=== PATIENT | female | born 1970 | race Caucasian/White ===

== ENCOUNTER → 2024-08-03 | Outpatient (CLI) | payer MEDICAID, SELFPAY ==
--- NOTE | 2024-08-03 12:30 | RAD_ITS ---
EXAM: XR BONE SURVEY, COMPLETE CLINICAL INDICATION: MGUS, R/O LYTIC LESION TECHNIQUE: Multiple views of the bones of the axial and appendicular skeleton. 20 images of the axial and appendicular skeleton. COMPARISON: Chest radiograph, 10/18/2014 FINDINGS: BONES/JOINTS: Status post C4-C5 and C5-C6 ACDF. Straightening of expected cervical lordosis. Multilevel facet, uncovertebral joint, and endplate osteophytosis in the cervical spine. Degenerative changes in the thoracic and lumbar spine. Degenerative anterolisthesis of L4 upon L5 secondary to facet arthrosis. No lytic or blastic osseous lesions are identified throughout the axial and appendicular skeletal structures visualized. SOFT TISSUES: Status post bilateral tubal ligation. No acute cardiac or pulmonary pathology is evident. Normal bowel gas pattern. OTHER FINDINGS: The patient is edentulous. RAD/Bone Survey Comp(Axial&Append) IMPRESSION: No lytic or blastic osseous lesions are identified throughout the axial and appendicular skeletal structures visualized. Degenerative changes and postoperative changes in the spine. Electronically Signed: Ronni Busch DO at 22:54 EDT ,
== END | disposition home or self-care (01) ==
LOC: RAD 12:00
PROVIDERS: PCP Internal Medicine; Referring Provider Internal Medicine Hematology & Oncology; Visit Provider Internal Medicine Hematology & Oncology
DX: D47.2 Monoclonal gammopathy (principal)
CPT/HCPCS: 77075

== ENCOUNTER → 2025-01-19 | Outpatient (CLI) | payer MEDICAID, SELFPAY ==
[2025-01-19 10:31] LABS: Absolute Lymphocyte Count 2.45 X10^3/uL (0.83-4.51); Basophil# 0.07 X10^3/uL; Basophil% 0.9 % (0-1); Eosinophil# 0.35 X10^3/uL; Eosinophils% 4.7 % (0-5); Hematocrit 40.8 % (37-47); Hemoglobin 13.6 g/dL (12.0-15.0); Lymphocyte # 2.45 X10^3/ul (0.83-4.51); Mean Corp Hgb Conc 33.3 g/dL (32-36); Mean Corpuscular Volume 81.1 fL (81-99); Mean Platelet Vol. 11.2 fl (6.2-12.0); Monocyte# 0.57 X10^3/uL; Monocyte% 7.7 % (0-10); NRBC Flagged by Analyzer 0 % (0-5); Neutrophil # 3.97 X10^3/uL (2.7-7.7); Neutrophil % 53.6 % (47-70); Platelet Count 272 K/mm3 (150-450); RBC Distribution Width CV 12.7 % (11.6-14.6); RBC Distribution Width SD 36.9 fl (35.1-43.9); Red Blood Count 5.03 M/mm3 (4.2-5.4); White Blood Count 7.4 K/mm3 (4.4-11.0)
[2025-01-19 11:41] LABS: ALB/GLOB Ratio 1.2 RATIO (0.9-2.4); AST(SGOT) 22 U/L (<=31); Alanine Aminotransfer ALT/SGPT 24 U/L (<=34); Albumin, Serum 3.9 g/dL (3.5-5.0); Alkaline Phosphatase 158 U/L (35-104); Anion Gap 13 (5-15); BUN 16 mg/dL (4-19); BUN/Creat Ratio 25.4 RATIO (10-20); Calcium,Total 9.5 mg/dL (7.6-11.0); Carbon Dioxide 20.4 mmol/L (21.0-32.0); Chloride 99 mmol/L (98-108); Creatinine, Serum 0.64 mg/dL (0.70-1.20); EST Glomerular Filtration Rate 105 (>60); Globulin 3.3 g/dL (2.2-4.2); Glucose 432 mg/dL (70-99); Potassium 4.3 mmol/L (3.3-5.1); Protein, Total 7.1 g/dL (5.9-8.4); Sodium Level 132 mmol/L (133-145)
[2025-01-23 13:07] LABS: Albumin 3.6 g/dL (2.9-4.4); Alpha-1-Globulins 0.2 g/dL (0.0-0.4); Alpha-2-Globulins 0.7 g/dL (0.4-1.0); Immunoglobulin A 337 mg/dL (87-352); Immunoglobulin G 1090 mg/dL (586-1602); Immunoglobulin M 56 mg/dL (26-217); PROEL- TOTAL PROTEIN 6.7 g/dL (6.0-8.5)
== END | disposition home or self-care (01) ==
LOC: LAB 09:41
PROVIDERS: PCP Internal Medicine; Referring Provider Internal Medicine Hematology & Oncology; Visit Provider Internal Medicine Hematology & Oncology
DX: D47.2 Monoclonal gammopathy (principal)
CPT/HCPCS: 36415; 80053; 82784; 84165; 85025; 86334